=== PATIENT | male | born 1980 | race African-American/Black ===

== ENCOUNTER 2020-03-25 09:04 | Observation (INO) | payer OTHER ==
--- NOTE | 2020-03-25 09:42 | PDOC ---
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 Today was driving to work 1 hour [employer]CER [employer]ER and had left-sided substernal chest pain radiating to neck and into head, also developed TAPIA and SOB. Pulled over to rest, symptoms improved, but came in to [facility] for further evaluation. Has had this pain before, between [id number] had multiple episodes of angina concerning for ACS but has never had MN. In 2017 had aphasia, facial droop, and right-sided weakness that self-resolved, still has faint R mouth facial droop since, ECHO shows PFO, carotid dopplers normal. Today denies facial droop, weakness, or any other CVA symptoms. 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 Supposed to be on ASA, statin, given CVA but has not been compliant with medications. Does not have PMD, or senior ui software engineer. Past History - Medical History Allergies/Adverse Reactions: Allergies Allergy/AdvReac Type Severity Reaction Status Date / Time No Known Allergies Allergy Verified 03/25/20 09:09 Home Medications: Ambulatory Orders Aspirin [ASA -] 81 mg PO DAILY 03/25/20 Cardiac Disorders: No CVA: Yes (TIA 2016) COPD: No Hypercholesterolemia: Yes - Psycho-Social/Smoking History Smoking History: Never smoked Have you smoked in the past 12 months: No - Substance Abuse Hx (Audit-C & DAST Scrn) How often the patient has a drink containing alcohol: Never Score: In Men: 4 or > Positive; In Women: 3 or > Positive: 0 Screen Result (Pos requires Nsg. Audit-10AR): Negative In the last yr the pt used illegal drug/Rx for NonMed reason: No Score: Yes response is considered Positive: 0 Screen Result (Positive result requires Nsg. DAST-10): Negative Review of Systems - Review of Systems Able to Perform ROS?: Yes Constitutional: No: Symptoms Reported HEENTM: No: Symptoms Reported Respiratory: Yes: SOB at Rest Cardiac (ROS): Yes: Chest Pain. No: Edema, Irregular Heart Rate, Lightheadedness, Palpitations, Syncope ABD/GI: No: Diarrhea, Nausea, Poor Appetite, Poor Fluid Intake, Vomiting : No: Symptoms Reported Musculoskeletal: No: Symptoms Reported Integumentary: No: Symptoms Reported Neurological: Yes: Headache. No: Numbness, Paresthesia, Weakness, Ataxia, Dizziness Endocrine: No: Symptoms Reported Hematologic/Lymphatic: No: Symptoms Reported All Other Systems: Reviewed and Negative *Physical Exam - Vital Signs Last Vital Signs Temp Pulse Resp BP Pulse Ox 98 F 75 18 139/91 100 03/25/20 09:10 03/25/20 09:10 03/25/20 09:10 03/25/20 09:10 03/25/20 09:10 - Physical Exam General Appearance: Yes: Nourished, Appropriately Dressed, Other (very tall, in NAD, resting in bed). No: Apparent Distress HEENT: positive: EOMI, MALINA, Normal ENT Inspection, Normal Voice, Symmetrical, Pharynx Normal, Hearing Grossly Normal. negative: Scleral Icterus (R), Scleral Icterus (L), Pharyngeal Erythema, Tonsillar Exudate, Tonsillar Erythema Neck: positive: Trachea midline, Normal Thyroid, Supple. negative: Tender, Rigid, Lymphadenopathy (R), Lymphadenopathy (L), Tender lateral, Tender midline Respiratory/Chest: positive: Lungs Clear, Normal Breath Sounds. negative: Chest Tender, Respiratory Distress, Accessory Muscle Use, Labored Respiration, Rapid RR, Crackles, Rales, Rhonchi, Stridor, Wheezing Cardiovascular: positive: Regular Rhythm, Regular Rate. negative: Murmur, Tachycardia Gastrointestinal/Abdominal: positive: Normal Bowel Sounds, Flat, Soft. negative: Tender, Organomegaly, Pulsatile Mass, Guarding, Rebound, Tenderness Musculoskeletal: positive: Normal Inspection. negative: CVA Tenderness, Decreased Range of Motion, Vertebral Tenderness Extremity: positive: Normal Capillary Refill, Normal Inspection, Normal Range of Motion, Pelvis Stable. negative: Tender, Pedal Edema, Swelling, Calf Tenderness Integumentary: positive: Normal Color, Dry, Warm Neurologic: positive: computer programming supervisor II-XII NML intact, Fully Oriented, Alert, Normal Mood/Affect, Normal Response, Motor Strength 5/5, Finger to Nose (normal), Other (gait normal). negative: Sensory Deficit ED Treatment Course - LABORATORY CBC & Chemistry Diagram: 03/25/20 10:15 03/25/20 10:15 Medical Decision Making - Medical Decision Making 03/25/20 09:40 Patient presents with acute onset substernal chest pain consistent with prior angina, first time in a few years, has history of CVA but non-compliant with meds, known PFO, no new neurological deficits on exam. Concerned primarily for ACS evaluation given known history of angina, no suspicion of CVA at this time. CMP/CBC/CP/ECG/CXR, on automobile assembly supervisor. Ofirmev, IVF, and ASA for chest pain. Merits tele/obs admit given poor medication compliance and angina. Labs notable for: - CMP WNL - CBC WNL - CP WNL - UA clean ECG NSR, HR 78, QTc 424, no SHOBHA/D or TWI. CXR unremarkable. Merits tele/obs admission for CS evaluation and further cardiac f/u. Discussed case with admitting team, accepts for tele/obs. Discharge - Discharge Information Problems reviewed: Yes Clinical Impression/Diagnosis: Chest pain Qualifiers: Chest pain type: other chest pain Qualified Code(s): R07.89 - Other chest pain Condition: Stable - Admission Yes - Follow up/Referral - Patient Discharge Instructions - Post Discharge Activity
[2020-03-25] MEDS ORDERED: ACETAMINOPHEN 1000 MG/100 ML VIAL (NON FORMULARY) IVPB ONE (10:06)
[2020-03-25] MEDS ORDERED: SODIUM CHLORIDE 0.9% 500 ML INFUS.BAG IV ONE (10:06)
[2020-03-25] MEDS ORDERED: ACETAMINOPHEN INJECTION 100 ML IVPB ONE (10:25)
[2020-03-25 10:29] LABS: BASO % 0.5 % (0-2.0); EOS % 4.7 % (0-4.5); HEMATOCRIT 42.9 % (35.4-49); HEMOGLOBIN 14.5 GM/dL (11.7-16.9); LYMPH % 31.1 % (8-40); MCHC 33.7 g/dl (32.0-35.9); MEAN PLT VOLUME 8.6 fl (7.5-11.1); MONO % 7.7 % (3.8-10.2); PLATELET COUNT 196 K/MM3 (134-434); RBC 5.17 M/mm3 (4.00-5.60); RDW 13.2 % (11.9-15.9)
[2020-03-25 10:34] LABS: PROTHROMBIN TIME (PATIENT) 11.8 SEC (9.7-13.0)
[2020-03-25 10:36] LABS: ACTIVATED PTT 36.5 SECONDS (25.2-36.5)
[2020-03-25 10:40] LABS: PH,URINE 6.5 (5.0-8.0); URINE APPEARANCE CLEAR; URINE BILIRUBIN NEGATIVE (NEGATIVE); URINE COLOR YELLOW; URINE GLUCOSE (UA) NEGATIVE (NEGATIVE); URINE KETONE NEGATIVE (NEGATIVE); URINE LEUK ESTERASE NEGATIVE (NEGATIVE); URINE NITRITE NEGATIVE (NEGATIVE); URINE PROTEIN NEGATIVE (NEGATIVE); URINE UROBILINOGEN 0.2 mg/dL (0.2-1.0)
[2020-03-25 10:57] LABS: ALBUMIN 3.9 g/dl (3.4-5.0); ALK PHOS 78 U/L (45-117); ANION GAP 4 MMOL/L (8-16); BILIRUBIN,TOTAL 0.4 mg/dL (0.2-1); BLOOD UREA NITROGEN 12.7 mg/dL (7-18); CALCIUM 8.7 mg/dL (8.5-10.1); CHLORIDE 108 mmol/L (98-107); CO2 30 mmol/L (21-32); CREATININE 0.8 mg/dL (0.55-1.3); GLUCOSE,RANDOM 86 mg/dL (74-106); SGOT/AST 7 U/L (15-37); SGPT/ALT 25 U/L (13-61); SODIUM 142 mmol/L (136-145); TOT PROT 7.3 g/dl (6.4-8.2)
[2020-03-25] MEDS ORDERED: ASPIRIN 81 MG CHEWABLE TABLETS PO ONE (11:18)
--- NOTE | 2020-03-25 11:57 | PDOC ---
Documentation entered by Silvestre Barajas SCRIBE, acting as scribe for Giacomo Guzman MD. Giacomo Guzman MD: This documentation has been prepared by the Karl begum Angel, SCRIBE, under my direction and personally reviewed by me in its entirety. I confirm that the documentation accurately reflects all work, treatment, procedures, and medical decision making performed by me. Attending Attestation - Resident Resident Name: AnamariaJigar - ED Attending Attestation I have performed the following: I have examined & evaluated the patient, The case was reviewed & discussed with the resident, I agree w/resident's findings & plan, Exceptions are as noted - HPI HPI: 03/25/20 11:39 The patient is a 39 year old male with a significant past medical history of angina, TIA, and PFO who presents to the ED with chest pain starting today. The patient was driving to work today when he began experiencing left-sided substernal chest pain, radiating to his neck and left arm. The pain is pressure-like in nature, constant. Patient noted the pain started while he was driving this morning the patient then pulled over to take a breather and he began feeling relief. The patient then came into the ED for further evaluation. The patient states he has had this pain back in [id number] with multiple episodes of angina. The patient denies any weakness, fever/chills, cough or any other symptoms. 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 social: works as RN - Physicial Exam PE: 03/25/20 11:54 GENERAL: The patient is awake, alert, and fully oriented, Nontoxic - in no acute distress. HEAD: Normocephalic, atraumatic. EYES: extraocular movements intact, sclera anicteric, conjunctiva clear. ENT: Normal voice, Moist mucous membranes. NECK: Normal range of motion, supple LUNGS: Breath sounds equal, clear to auscultation bilaterally. No wheezes, no rhonchi, no rales. HEART: Regular rate and rhythm, normal S1 and S2 without murmur, rub or gallop. ABDOMEN: Soft, nontender, No guarding, no rebound. No CVA tenderness EXTREMITIES: Normal range of motion, no edema. NEUROLOGICAL: No facial assymetry, Normal speech, moving all 4 extremities spontaneously and symmetrically PSYCH: Normal mood, normal affect. SKIN: Warm, Dry, normal turgor, - Medical Decision Making 03/25/20 11:56 Concern for possible acs, although seems to have low risk, but has a hxof tia - non compliant with his statins and asa Anticipate admission for further management of ACS Heart Score/ECG Review - ECG Impressions Comment:: 03/25/20 10:46 Twelve-lead EKG was performed and reviewed by me. There is normal sinus rhythm with a normal rate. The axis is normal. The intervals are normal. There is normal R wave progression There are no ST or T wave abnormalities. Impression: Normal twelve-lead EKG Discharge - Discharge Information Problems reviewed: Yes Clinical Impression/Diagnosis: Chest pain Qualifiers: Chest pain type: unspecified Qualified Code(s): R07.9 - Chest pain, unspecified Condition: Stable - Follow up/Referral - Patient Discharge Instructions - Post Discharge Activity
[2020-03-25] MEDS ORDERED: ASPIRIN 81 MG CHEWABLE TABLETS ONE (12:24)
--- NOTE | 2020-03-25 13:15 | PN ---
Teaching Attending Note Name of Resident: Darell Tabor ATTENDING PHYSICIAN STATEMENT I saw and evaluated the patient. I reviewed the resident's note and discussed the case with the resident. I agree with the resident's findings and plan as documented. SUBJECTIVE: 39yo M with h/o embolic TIA, and PFO who presents today with anginal symptoms that occurred while driving to work. Patient has had previous anginal symptoms noted in 2017 and has not had any episodes since. Patient admits to being noncompliant with his medications (ASA and Zocor) due to bruising he developed and GI upset with Zocor. Patient was supposed to see outpatient cardiology for cardiac workup, however he has not followed with a PMD nor a crew director. His chest pain today lasted about 3 hours with associated radiation to L upper extremity and without any SOB or diaphoresis. Patient's pain slowly subsided after that and he has some slight discomfort that's been improving. Patient otherwise has no other complaints. PMHX: as above PSHx: None SoHx: No tobacco, alcohol, or illicit drugs FamHx: Father (alive) has CAD OBJECTIVE: Vital Signs Temperature 97.8 F 03/25/20 15:51 Pulse Rate 69 03/25/20 15:51 Respiratory Rate 15 03/25/20 15:51 Blood Pressure 112/80 03/25/20 15:51 O2 Sat by Pulse Oximetry (%) 98 03/25/20 15:51 PE: Gen: NAD, awake, alert, oriented HEENT: Nc/At, [place], MMM Neck: No JVD, no bruits CARD: RRR no murmurs appreciated. nonreproducible pain with palpation LUNG: CTA b/l without wheezes or rales ABD: Soft, NT/Nd, + BS EXT: No edema noted, strong distal pulses ASSESSMENT AND PLAN: Suspected Unstable Angina History of Embolic TIA 2/2 PFO --Given anginal symptoms with prior history and no cardiac workup will place in observation for cardiac monitoring --Echocardiogram with bubble study for development of PFO (inpt vs. outpt per cardio) --Patient would likely benefit from stress testing to be determined for inpatient vs. outpatient per cardiology --Cardiology consulted for above --continue ASA 81mg qdaily --TSH, A1c, Lipid panel ordered for AM --Monitor on telemetry Dispo: Telemetry monitoring DO Nathanael Colon
--- NOTE | 2020-03-25 16:16 | CON.CARD ---
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 Pulled over to rest, symptoms improved, but came in to [facility] for further evaluation. Has had this pain before, between [id number] had multiple episodes of angina concerning for ACS but has never had WA. In 2017 had aphasia, facial droop, perioral n umbness and right-sided weakness that self-resolved, DELFIN shows PFO, carotid dopplers normal, hypercoagulable eval negative, arrhythmia monitor neg for PAF all performed at [facility]. Today denies facial droop, weakness, or any other CVA symptoms or prolonged immobility. 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 Supposed to be on ASA, statin, given CVA but has not been compliant with medications. - History Source History Provided By: Patient Limitations to Obtaining History: No Limitations - Smoking History Smoking history: Never smoked Have you smoked in the past 12 months: No Home Medications - Allergies Allergies/Adverse Reactions: Allergies Allergy/AdvReac Type Severity Reaction Status Date / Time No Known Allergies Allergy Verified 03/25/20 09:09 - Home Medications Home Medications: Ambulatory Orders Aspirin [ASA -] 81 mg PO DAILY 03/25/20 Review of Systems - Review of Systems Cardiovascular: reports: Chest Pain, Shortness of Breath Vital Signs: Vital Signs Temperature 97.8 F 03/25/20 15:51 Pulse Rate 69 03/25/20 15:51 Respiratory Rate 15 03/25/20 15:51 Blood Pressure 112/80 03/25/20 15:51 O2 Sat by Pulse Oximetry (%) 98 03/25/20 15:51 Constitutional: Yes: No Distress, Calm Neck: Yes: Supple Respiratory: Yes: Regular, CTA Bilaterally Gastrointestinal: Yes: Normal Bowel Sounds, Soft Cardiovascular: Yes: Regular Rate and Rhythm JVD: No Carotid Bruit: No Heart Sounds: Yes: S1, S2 Edema: No - Other Data Labs, Other Data: CBC, BMP 03/25/20 10:15 03/25/20 10:15 INR, PTT INR 1.00 (0.83-1.09) 03/25/20 10:15 Troponin, BNP 03/25/20 10:15 Troponin I < 0.02 Troponin, BNP 03/25/20 10:15 Troponin I < 0.02 NSR @ 78 w/o ST-T changes Ejection Fraction %: LVEF > or = 40 % Imaging - Results Chest X-ray: Report Reviewed (NAD) Problem List - Problems (1) TIA (transient ischemic attack) Code(s): G45.9 - TRANSIENT CEREBRAL ISCHEMIC ATTACK, UNSPECIFIED (2) PFO (patent foramen ovale) Code(s): Q21.1 - ATRIAL SEPTAL DEFECT (3) Chest pain Code(s): R07.9 - CHEST PAIN, UNSPECIFIED Qualifiers: Chest pain type: other chest pain Qualified Code(s): R07.89 - Other chest pain; R07.8 - Other chest pain Assessment/Plan 1. Chest pain r/o WA 2. TIA with underlying PFO P:1. Continue ASA 81 qd, check TSH, lipid panel, Ha1c, rule out WA 2. environmental monitoring specialist, serial ecg 3. If symptoms lorenzo and ruled out for WA, may pursue further CV w/u including echo and ETT as outpatient 4. Thank you for consultative opportunity
[2020-03-25 17:50] VITALS: BMI 27.6
--- NOTE | 2020-03-25 20:03 | HP ---
CHIEF COMPLAINT: chest pain PCP: none HISTORY OF PRESENT ILLNESS: 39M w/pmh of angina symptoms, TIA(2016), PFO presents to [facility] for complaint of Left-sided CP which felt like a sharp stabbing pain to lower Left chest with resultant pressure-like tightness with radiation to Left shoulder and across Right scapula. States that the tightness is present but much improved. Symptoms occurred while driving to work in the AM(08:00 - 08:10 AM), had been feeling stressed at work. Symptoms lasted approximately 3hs. Had simliar symptoms with diaphoresis in the past(2016, and 2017) which prompted evaluation by PCP at which point he had an abnormal EKG showing an unspecificed infarct. A repeat EKG on the same day was normal. Had TIA in October 2016, after presenting to OSH with complaint with tingling/twitching of Right upper lip; inability to speak. Resolution of inability to move lips after 5mins. Had garbled speech for 2hs. W/u at resulted in echo showing persistent PFO. Pt had known about PFO thought it resolved in childhood. Was only admitted for 24hs, and discharged with ASA 325mg and Simvastatin 10mg. Pt was compliant with the medicaitons for one year before deciding he didn't like the bruising and belching he attributed to the medications. Had seen a Computer Artist(Jayne Garcia in [place]), who discussed a future Stress Test. Pt states that he sometimes gets SOB while walking up stairs. In December, was able to perform house renovations(house painting, carpet removal) w/o SOB. ER course was notable for: -98F, HR 70s, BP 139/91 -ECG NSR, HR 78, QTc 424, no SHOBHA/D or TWI -CXR: normal -ASA 324mg -NS 1000ml, ofirmev Recent Travel: moved from [place] in Jul 2019, stuck in [place] d/t COVID PAST MEDICAL HISTORY: as above PAST SURGICAL HISTORY: none Social History: Smoking: denies Alcohol: denies Drugs: denies Allergies No Known Allergies Allergy (Verified 03/25/20 09:09) HOME MEDICATIONS: Home Medications Medication Instructions Recorded Aspirin [ASA -] 81 mg PO DAILY 03/25/20 REVIEW OF SYSTEMS CONSTITUTIONAL: Absent: fever, chills, diaphoresis, generalized weakness, malaise, loss of appetite, weight change HEENT: Absent: rhinorrhea, nasal congestion, throat pain, throat swelling, difficulty swallowing, mouth swelling, ear pain, eye pain, visual changes CARDIOVASCULAR: chest pain Absent: , syncope, palpitations, irregular heart rate, lightheadedness, peripheral edema RESPIRATORY: shortness of breath, Absent: cough, dyspnea with exertion, orthopnea, wheezing, stridor, hemoptysis GASTROINTESTINAL: Absent: abdominal pain, abdominal distension, nausea, vomiting, diarrhea, constipation, melena, hematochezia GENITOURINARY: Absent: dysuria, frequency, urgency, hesitancy, hematuria, flank pain, genital pain MUSCULOSKELETAL: Absent: myalgia, arthralgia, joint swelling, back pain, neck pain SKIN: Absent: rash, itching, pallor HEMATOLOGIC/IMMUNOLOGIC: Absent: easy bleeding, easy bruising, lymphadenopathy, frequent infections ENDOCRINE: Absent: unexplained weight gain, unexplained weight loss, heat intolerance, cold intolerance NEUROLOGIC: Absent: headache, focal weakness or paresthesias, dizziness, unsteady gait, seizure, mental status changes, bladder or bowel incontinence PSYCHIATRIC: Absent: anxiety, depression, suicidal or homicidal ideation, hallucinations. PHYSICAL EXAMINATION Vital Signs - 24 hr 03/25/20 03/25/20 03/25/20 09:10 09:45 12:57 Temperature 98 F Pulse Rate 75 72 Pulse Rate [ 72 Apical] Respiratory 18 16 Rate Blood Pressure 139/91 Blood Pressure 115/77 [Right Arm] O2 Sat by Pulse 100 100 100 Oximetry (%) 03/25/20 03/25/20 03/25/20 15:15 15:51 17:42 Temperature 97.8 F 98 F Pulse Rate 61 Pulse Rate [ 69 Apical] Respiratory 16 15 20 Rate Blood Pressure 120/85 Blood Pressure 112/80 [Right Arm] O2 Sat by Pulse 100 98 100 Oximetry (%) 03/25/20 18:25 Temperature Pulse Rate Pulse Rate [ Apical] Respiratory Rate Blood Pressure Blood Pressure [Right Arm] O2 Sat by Pulse 100 Oximetry (%) GENERAL: Awake, alert, and fully oriented, in no acute distress. Well-nourished HEAD: Normal with no signs of trauma. EYES: sclera anicteric, conjunctiva clear. NECK: Normal range of motion, supple without lymphadenopathy, JVD, or masses. LUNGS: Breath sounds equal, clear to auscultation bilaterally. No wheezes, and no crackles. No accessory muscle use. HEART: Regular rate and rhythm, normal S1 and S2 without murmur, rub or gallop. No tenderness to palpitation of anterior chest wall ABDOMEN: Soft, nontender, not distended, normoactive bowel sounds, no guarding, no rebound MUSCULOSKELETAL: Normal range of motion at all joints. No bony deformities or tenderness. No CVA tenderness. UPPER EXTREMITIES: 2+ pulses, warm, well-perfused. No cyanosis. No clubbing. No peripheral edema. LOWER EXTREMITIES: 2+ pulses, warm, well-perfused. No calf tenderness. No peripheral edema. NEUROLOGICAL: Normal speech. Moving all four extremities w/o issues PSYCHIATRIC: mildly anxious SKIN: Warm, dry, normal turgor, no rashes or lesions noted, normal capillary refill. Laboratory Results - last 24 hr 03/25/20 03/25/20 03/25/20 10:15 10:15 10:15 WBC 5.0 RBC 5.17 Hgb 14.5 Hct 42.9 MCV 83.0 MCH 28.0 MCHC 33.7 RDW 13.2 Plt Count 196 MPV 8.6 Absolute Neuts (auto) 2.8 Neutrophils % 56.0 Lymphocytes % 31.1 Monocytes % 7.7 Eosinophils % 4.7 H Basophils % 0.5 Nucleated RBC % 0 PT with INR 11.80 INR 1.00 PTT (Actin FS) 36.5 Sodium 142 Potassium 4.0 Chloride 108 H Carbon Dioxide 30 Anion Gap 4 L BUN 12.7 Creatinine 0.8 Est GFR (CKD-EPI)AfAm 130.42 Est GFR (CKD-EPI)NonAf 112.53 Random Glucose 86 Calcium 8.7 Total Bilirubin 0.4 AST 7 L ALT 25 Alkaline Phosphatase 78 Creatine Kinase 80 Troponin I < 0.02 Total Protein 7.3 Albumin 3.9 Urine Color Urine Appearance Urine pH Ur Specific [place] Urine Protein Urine Glucose (UA) Urine Ketones Urine Blood Urine Nitrite Urine Bilirubin Urine Urobilinogen Ur Leukocyte Esterase 03/25/20 03/25/20 10:20 17:20 WBC RBC Hgb Hct MCV MCH MCHC RDW Plt Count MPV Absolute Neuts (auto) Neutrophils % Lymphocytes % Monocytes % Eosinophils % Basophils % Nucleated RBC % PT with INR INR PTT (Actin FS) Sodium Potassium Chloride Carbon Dioxide Anion Gap BUN Creatinine Est GFR (CKD-EPI)AfAm Est GFR (CKD-EPI)NonAf Random Glucose Calcium Total Bilirubin AST ALT Alkaline Phosphatase Creatine Kinase Troponin I < 0.02 Total Protein Albumin Urine Color Yellow Urine Appearance Clear Urine pH 6.5 Ur Specific [place] 1.014 Urine Protein Negative Urine Glucose (UA) Negative Urine Ketones Negative Urine Blood Negative Urine Nitrite Negative Urine Bilirubin Negative Urine Urobilinogen 0.2 Ur Leukocyte Esterase Negative ASSESSMENT/PLAN: 39M w/pmh of angina symptoms, TIA(2017), PFO presents to [facility] for complaint of Left-sided CP which felt like a sharp stabbing pain to lower Left chest with resultant pressure-like tightness with radiation to Left shoulder and across Right scapula. Due to history of untreated PFO, and questionable TIA pt was deemed risk-risk enough for tele-observation for evaluation for CAD. #Chest pain --unlikely ND, will r/o. Will evaluate risks for CAD > troponin neg x2 --fu 3rd troponin > EKG: NSR, HR 78, QTc 424, no SHOBHA/D or TWI --fu AM EKG > Lipid panel --pending > HbA1c --pending > ASCVD score --pending lipid panel - telemetry - ASA 81mg - Atorvastatin 10mg - Cardiology Consult([facility]): --cw ASA 81 --CV w/u including echo and ETT as outpatient #persistent PFO --unknown severity - will pursue Echo as outpatient #?TIA - cw ASA, statin FEN - no IVF - regular diet DVT PPX - lovenox Family Medical History Family History: As Documented Family Hx Cancer: Grandfather (maternal) (colon CA) Family Hx Cardiac Disorders: Grandmother (paternal), Grandfather (maternal) (CAD ND), Grandfather (paternal) (stroke, ND), Mother (Afib) Family Hx Nuerologic Problems: Grandfather (maternal) (stroke) Visit type - Emergency Visit Emergency Visit: Yes ED Registration Date: 03/25/20 Care time: The patient presented to the Emergency Department on the above date and was hospitalized for further evaluation of their emergent condition. - New Patient This patient is new to me today: Yes Date on this admission: 03/25/20 - Critical Care Critical Care patient: No ATTENDING PHYSICIAN STATEMENT I saw and evaluated the patient. I reviewed the resident's note and discussed the case with the resident. I agree with the resident's findings and plan as documented. SUBJECTIVE: OBJECTIVE: ASSESSMENT AND PLAN:
[2020-03-25] MEDS ORDERED: ATORVASTATIN CA 10 MG TABLET (FP) PO SCH (22:00)
[2020-03-26 06:50] LABS: HEMATOCRIT 41.4 % (35.4-49); HEMOGLOBIN 13.8 GM/dL (11.7-16.9); MCHC 33.4 g/dl (32.0-35.9); MEAN CELL VOLUME 83.6 fl (80-96); MEAN PLT VOLUME 8.8 fl (7.5-11.1); PLATELET COUNT 198 K/MM3 (134-434); RBC 4.95 M/mm3 (4.00-5.60); RDW 13.5 % (11.9-15.9); WHITE BLOOD COUNT 4.6 K/mm3 (4.0-10.0)
[2020-03-26 07:21] LABS: BLOOD UREA NITROGEN 9.3 mg/dL (7-18); CALCIUM 8.4 mg/dL (8.5-10.1); CREATININE 0.8 mg/dL (0.55-1.3); POTASSIUM 3.9 mmol/L (3.5-5.1)
[2020-03-26 07:30] LABS: CHOLESTEROL 122 mg/dL (50-200); HDL CHOLESTEROL 44 mg/dL (40-60); LDL CHOLESTEROL (ONLY DFH) 61 mg/dl (5-100); TRIGLYCERIDES 85 mg/dL (0-150)
[2020-03-26 08:20] VITALS: TEMP 97.8
[2020-03-26] MEDS ORDERED: ENOXAPARIN NA (PORCINE) 40 MG/0.4 ML DISP.SYRIN SQ SCH (10:00)
[2020-03-26] MEDS ORDERED: ASPIRIN 81 MG CHEWABLE TABLETS PO SCH (10:00)
--- NOTE | 2020-03-26 10:20 | PN ---
Progress Note, Physician Chief Complaint: Events noted Not in distress History of Present Illness: Patient was seen and examined. Awake and alert. Chart was reviewed Denies chest pain, SOB or palpitations - Current Medication List Current Medications: Active Medications Aspirin (Asa -) 81 mg PO DAILY [facility] Last Admin: 03/26/20 09:04 Dose: 81 mg Documented by: Atorvastatin Calcium (Lipitor -) 10 mg PO HS [facility] Last Admin: 03/25/20 21:46 Dose: 10 mg Documented by: Enoxaparin Sodium (Lovenox -) 40 mg SQ DAILY [facility] Last Admin: 03/26/20 09:04 Dose: 40 mg Documented by: - Objective Vital Signs: Vital Signs Temperature 97.8 F 03/26/20 06:00 Pulse Rate 62 03/26/20 06:00 Respiratory Rate 20 03/26/20 06:00 Blood Pressure 108/63 03/26/20 06:00 O2 Sat by Pulse Oximetry (%) 99 03/26/20 06:00 HENT: Yes: Atraumatic Neck: Yes: Supple Cardiovascular: Yes: Regular Rate and Rhythm, S1, S2. No: Murmur Respiratory: Yes: CTA Bilaterally Gastrointestinal: Yes: Normal Bowel Sounds, Soft. No: Tenderness Edema: No Additional Findings/Remarks: - Review of Systems Constitutional: denies: Chills, Fever Cardiovascular: denies: Shortness of Breath. denies: Chest Pain, Palpitations Respiratory: denies: Cough, SOB. denies: Hemoptysis, Orthopnea, PND, Wheezing Gastrointestinal: denies: Abdominal Pain, Constipation, Diarrhea, Melena, Nausea, Rectal Bleeding, Vomiting Musculoskeletal: denies: Back Pain, Joint Pain Neurological: denies: Dizziness, Headache, Seizure, Syncope Labs: CBC, BMP 03/26/20 05:54 03/26/20 05:54 INR, PTT INR 1.00 (0.83-1.09) 03/25/20 10:15 Problem List - Problems (1) Chest pain Code(s): R07.9 - CHEST PAIN, UNSPECIFIED Qualifiers: Chest pain type: other chest pain Qualified Code(s): R07.89 - Other chest pain; R07.8 - Other chest pain (2) PFO (patent foramen ovale) Code(s): Q21.1 - ATRIAL SEPTAL DEFECT (3) TIA (transient ischemic attack) Code(s): G45.9 - TRANSIENT CEREBRAL ISCHEMIC ATTACK, UNSPECIFIED Assessment/Plan 1. Chest pain atypical 2. History of TIA with underlying PFO PLAN: 1. Continue ASA 81 mg QD 2. Await final COVID testing 3. May pursue further cardiac work up including echocardiography and ETT as outpatient. [facility] 4. May consider further evaluation and indication for percutaneous PFO closure as outpatient If COVID negative, discharge home Wilbur Glynn MD
[2020-03-26 10:51] VITALS: BP 109/72; PULSE 64
--- NOTE | 2020-03-26 10:52 | DS ---
Physical Exam: SUBJECTIVE: Patient seen and examined OBJECTIVE: per admission note: Patient is a 39 year old male with pmh of angina symptoms, TIA(2016), PFO presents to [facility] for complaint of Left-sided CP which felt like a sharp stabbing pain to lower Left chest with resultant pressure-like tightness with radiation to Left shoulder and across Right scapula. States that the tightness is present but much improved. Symptoms occurred while driving to work in the AM, had been feeling stressed at work. Symptoms lasted approximately 3hrs. Had similar symptoms with diaphoresis in the past (2016, and 2018) which prompted evaluation by PCP at which point he had an abnormal EKG showing an unspecified infarct. A repeat EKG on the same day was normal. Had TIA in October 2016, after presenting to OSH with complaint with tingling/twitching of Right upper lip; inability to speak. Resolution of inability to move lips after 5mins. Had gar bled speech for 2hrs. W/u at resulted in echo showing persistent PFO. Pt had known about PFO thought it resolved in childhood. Was only admitted for 24hs, and discharged with ASA 325mg and Simvastatin 10mg. Pt was compliant with the medications for one year before deciding he didn't like the bruising and belching he attributed to the medications. Had seen a Watch Electrician(Jayne Garcia in [place]), who discussed a future Stress Test. Pt states that he sometimes gets SOB while walking up stairs. In December, was able to perform house renovations(house painting, carpet removal) w/o SOB. patient confirmed the above. He no longer has chest pain or shortness of breath and agrees to outpatient follow up with cardiology. Vital Signs Period Temp Pulse Resp BP Sys/Rodriguez Pulse Ox Last 24 Hr 97.6 F-98 F 61-72 15-20 108-130/63-85 98-100 PHYSICAL EXAM GENERAL: The patient is awake, alert, and fully oriented, in no acute distress. HEAD: Normal with no signs of trauma. EYES: PERRL, extraocular movements intact, sclera anicteric, conjunctiva clear. ENT: Ears normal, nares patent, oropharynx clear without exudates, moist mucous membranes. NECK: Trachea midline, full range of motion, supple. LUNGS: Breath sounds equal, clear to auscultation bilaterally, no wheezes, no crackles, no accessory muscle use. HEART: Regular rate and rhythm, S1, S2 without murmur, rub or gallop. ABDOMEN: Soft, nontender, nondistended, normoactive bowel sounds, no guarding, no rebound, no hepatosplenomegaly, no masses. EXTREMITIES: 2+ pulses, warm, well-perfused, no edema. NEUROLOGICAL: Cranial nerves II through XII grossly intact. Normal speech, gait not observed. PSYCH: Normal mood, normal affect. SKIN: Warm, dry, normal turgor, no rashes or lesions noted. LABS Laboratory Results - last 24 hr 03/25/20 03/25/20 03/25/20 10:15 17:20 23:30 WBC RBC Hgb Hct MCV MCH MCHC RDW Plt Count MPV Sodium 142 Potassium 4.0 Chloride 108 H Carbon Dioxide 30 Anion Gap 4 L BUN 12.7 Creatinine 0.8 Est GFR (CKD-EPI)AfAm 130.42 Est GFR (CKD-EPI)NonAf 112.53 Random Glucose 86 Hemoglobin A1c % Calcium 8.7 Total Bilirubin 0.4 AST 7 L ALT 25 Alkaline Phosphatase 78 Creatine Kinase 80 Troponin I < 0.02 < 0.02 < 0.02 Total Protein 7.3 Albumin 3.9 Triglycerides Cholesterol Total LDL Cholesterol HDL Cholesterol TSH 03/26/20 03/26/20 03/26/20 05:54 05:54 05:54 WBC 4.6 RBC 4.95 Hgb 13.8 Hct 41.4 MCV 83.6 MCH 28.0 MCHC 33.4 RDW 13.5 Plt Count 198 MPV 8.8 Sodium 139 Potassium 3.9 Chloride 108 H Carbon Dioxide 28 Anion Gap 3 L BUN 9.3 Creatinine 0.8 Est GFR (CKD-EPI)AfAm 130.42 Est GFR (CKD-EPI)NonAf 112.53 Random Glucose 100 Hemoglobin A1c % Calcium 8.4 L Total Bilirubin AST ALT Alkaline Phosphatase Creatine Kinase Troponin I Total Protein Albumin Triglycerides 85 Cholesterol 113 Total LDL Cholesterol 65 HDL Cholesterol 41 TSH 1.13 03/26/20 03/26/20 05:54 05:54 WBC RBC Hgb Hct MCV MCH MCHC RDW Plt Count MPV Sodium Potassium Chloride Carbon Dioxide Anion Gap BUN Creatinine Est GFR (CKD-EPI)AfAm Est GFR (CKD-EPI)NonAf Random Glucose Hemoglobin A1c % 4.6 Calcium Total Bilirubin AST ALT Alkaline Phosphatase Creatine Kinase Troponin I Total Protein Albumin Triglycerides 85 Cholesterol 122 Total LDL Cholesterol 61 HDL Cholesterol 44 TSH HOSPITAL COURSE: Date of Admission:03/25/20 Date of Discharge: 03/26/20 chest pain resolved, patient to continue asa and lipitor and follow up with cardiology for further workup. He will call cardiology on Saturday for outpatient workup. cleared by cardiology for d/c home. He has a neurologist who he follows up with after his stroke. Minutes to complete discharge: 45 Discharge Summary Problems reviewed: Yes Reason For Visit: CHEST PAIN Current Active Problems Chest pain (Acute) PFO (patent foramen ovale) (Acute) TIA (transient ischemic attack) (Acute) Condition: Stable - Instructions Diet, Activity, Other Instructions: Mr. Snyder: You were admitted for chest pain. Your cardiac workup is negative and you will be sent home today with the following instructions: 1. Continue ASA 81 mg daily 2[address] Dr. Estrada/Dr Gretta Bowles on Saturday to make an appointment for further cardiac work up. [facility] 3. Start on Lipitor 10mg daily and Aspirin 81mg daily for stroke prevention Thank you for allowing us to care for you. Referrals: ON STAFF,NOT [Primary Care Provider] - Disposition: HOME - Home Medications Comprehensive Discharge Medication List: Ambulatory Orders Aspirin [ASA -] 81 mg PO DAILY 03/25/20 Aspirin [ASA -] 81 mg PO DAILY tab.chew 03/26/20 Atorvastatin Ca [Lipitor] 10 mg PO HS #90 tablet 03/26/20 This patient is new to me today: Yes Date on this admission: 03/26/20 Emergency Visit: Yes ED Registration Date: 03/25/20 Care time: The patient presented to the Emergency Department on the above date and was hospitalized for further evaluation of their emergent condition. Critical Care patient: No - Discharge Referral Referred to [facility] Med [facility] No
--- NOTE | 2020-03-27 20:03 | EKG ---
Test Reason : Blood Pressure : / mmHG Vent. Rate : 078 BPM Atrial Rate : 078 BPM P-R Int : 176 ms QRS Dur : 096 ms QT Int : 372 ms P-R-T Axes : 050 057 040 degrees QTc Int : 424 ms NORMAL SINUS RHYTHM NORMAL ECG NO PREVIOUS ECGS AVAILABLE Confirmed by ANTONIETA DEL REAL MD ([id number]) on 03/27/2020 8:03:00 PM Referred By: Confirmed By:ANTONIETA DEL REAL MD
--- NOTE | 2020-03-27 20:04 | EKG ---
Test Reason : Blood Pressure : / mmHG Vent. Rate : 073 BPM Atrial Rate : 073 BPM P-R Int : 180 ms QRS Dur : 100 ms QT Int : 386 ms P-R-T Axes : 050 063 040 degrees QTc Int : 425 ms NORMAL SINUS RHYTHM NORMAL ECG WHEN COMPARED WITH ECG OF 25-MAR-2020 09:09, NO SIGNIFICANT CHANGE WAS FOUND Confirmed by ANTONIETA DEL REAL MD ([id number]) on 03/27/2020 8:03:42 PM Referred By: Delilah QUEZADA Confirmed By:ANTONIETA DEL REAL MD
== END 2020-03-26 13:00 | disposition home or self-care (01) ==
LOC: JER 09:04 → JERBED 12:23 → J4S 16:47
PROVIDERS: ADMIT Internal Medicine; ATTEND Nurse Practitioner Family
PROC: 3E033NZ Introduction of Analgesics, Hypnotics, Sedatives into Peripheral Vein, Percutaneous Approach (ICD-10-PCS; principal; 2020-03-25)
PROC: 3E023GC Introduction of Other Therapeutic Substance into Muscle, Percutaneous Approach (ICD-10-PCS; 2020-03-25)
PROC: 3E0337Z Introduction of Electrolytic and Water Balance Substance into Peripheral Vein, Percutaneous Approach (ICD-10-PCS; 2020-03-25)
DX: R07.89 Other chest pain (principal); Q21.1 Atrial septal defect; F43.9 Reaction to severe stress, unspecified; I20.9 Angina pectoris, unspecified; Z86.73 Personal history of transient ischemic attack (TIA), and cerebral infarction without residual deficits; Z29.9 Encounter for prophylactic measures, unspecified
CPT/HCPCS: 36415; 71046-TC-FY; 80048; 80053; 80061; 81003; 82550; 83036; 83721; 84443; 84484; 85025; 85027; 85610; 85730; 87086; 93005; 93010; 99285-25; G0378; J0131; U0003